=== PATIENT | male | born 1935 | race Caucasian/White ===

== ENCOUNTER 2017-09-27 15:10 | Emergency (ER) | payer OTHER ==
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
[2017-09-27] MEDS ORDERED: Ketorolac 60 MG/2 ML SDV IM ONE (17:01)
[2017-09-27] MEDS ORDERED: Acetaminophen/HYDROcodone 325-5 MG Tab PO ONE (18:32)
== END 2017-09-27 18:50 | disposition home or self-care (01) ==
LOC: KA.ED 15:10
DX: S32.010A Wedge compression fracture of first lumbar vertebra, initial encounter for closed fracture (principal); Z88.8 Allergy status to other drugs, medicaments and biological substances; Z79.899 Other long term (current) drug therapy; V49.3XXA Car occupant (driver) (passenger) injured in unspecified nontraffic accident, initial encounter
CPT/HCPCS: 36415; 70450; 72125; 72128; 72131; 80053; 85025; 96372; 99285; A9270; J1885; 93005